=== PATIENT | male | born 1940 | race Caucasian/White ===

== ENCOUNTER 2018-05-10 08:32 | Outpatient (CLI) | payer MEDICARE ==
--- NOTE | 2018-05-10 15:15 | NM ---
NUCLEAR MEDICINE BRAIN IMAGING: Date: 05/10/18 HISTORY: Parkinson's disease. TECHNIQUE: A DaTscan with axial tomographic images of the brain was obtained 3 hours following the intravenous a dministration of 4.6 mCi Iodine-123 Ioflupane. The patient was pretreated with 130 mg of potassium io dide orally 1 hour prior to the injection. FINDINGS: There is loss of normal, symmetric uptake in the striata bilaterally, with presence of period-shaped foci of uptake in the anterior striata on either side. IMPRESSION: Findings are consistent with Parkinson's disease. POS: [facility]
== END 2018-05-10 08:33 | disposition home or self-care (01) ==
LOC: NM 08:32
PROVIDERS: ATTEND Psychiatry & Neurology Neurology
DX: G20 Parkinson's disease (principal)
CPT/HCPCS: 78607; A9584

== ENCOUNTER 2024-12-13 09:31 | Outpatient (CLI) | payer MEDICARE | END 2024-12-13 09:32 | disposition home or self-care (01) | LOC: NM 09:31 | PROVIDERS: ATTEND Family Medicine | DX: G20.C Parkinsonism, unspecified (principal); R93.0 Abnormal findings on diagnostic imaging of skull and head, not elsewhere classified | CPT/HCPCS: 78803; A9584 ×2 ==